=== PATIENT | male | born 1965 | race Caucasian/White ===

== ENCOUNTER 2016-12-02 08:26 | Emergency (ER) | payer OTHER ==
--- NOTE | 2016-12-02 09:24 | XR ---
EXAMINATION TYPE: XR ribs LT w pa chest xray DATE OF EXAM: 12/02/2016 9:13 AM COMPARISON: NONE HISTORY: Pain TECHNIQUE: PA view of the chest and 4 views of the left ribs submitted FINDINGS: Postsurgical change involving the left shoulder with findings compatible with remote healed left clav icular fracture. The lungs are clear. No pneumothorax, pleural effusion or focal infiltrate. IMPRESSION: 1. No acute fracture. 2. Remote traumatic change
--- NOTE | 2016-12-02 09:34 | ED ---
Back Pain HPI - General Chief Complaint: Back Pain/Injury Stated Complaint: Rib injury, [facility]HS Time Seen by Provider: 12/02/16 08:50 Source: patient, RN notes reviewed Mode of arrival: ambulatory Limitations: no limitations - History of Present Illness Initial Comments: 51-year-old male presents emergency Department chief complaint left rib pain. Patient states that he was at work in which she fell back because he was standing in the bowl tried to remove a log and semi-pulled a rope on him. Patient states the boat shifted causing the fall back onto the seat. Patient states he had some pain then but states that he was working on some machinery last couple days states that he's had increasing pain because of the seat bouncing and hitting region. Patient states the pain seems worse. Patient denies any hematuria. Patient denies abdominal pain, low back pain. Patient states she does have some pain with takes a deep inspiration. - Related Data Previous Rx's Medication Instructions Recorded Hydrocodone/Acetaminophen [[place] 1 tab PO Q6HR PRN #20 tab 12/02/16 5-325] Allergies Allergy/AdvReac Type Severity Reaction Status Date / Time codeine AdvReac Itching Verified 12/02/16 09:00 Review of Systems ROS Statement: Those systems with pertinent positive or pertinent negative responses have been documented in the HPI. ROS Other: All systems not noted in ROS Statement are negative. Past Medical History Past Medical History: No Reported History History of Any Multi-Drug Resistant Organisms: None Reported Past Surgical History: Joint Replacement Additional Past Surgical History / Comment(s): abdominal surg knee Past Psychological History: No Psychological Hx Reported Smoking Status: Never smoker Past Alcohol Use History: Rare Past Drug Use History: None Reported General Exam Limitations: no limitations General appearance: alert, in no apparent distress Head exam: Present: atraumatic, normocephalic, normal inspection Neck exam: Present: normal inspection, full ROM. Absent: tenderness, meningismus, lymphadenopathy Respiratory exam: Present: normal lung sounds bilaterally, chest wall tenderness (Left rib tenderness posterior to lateral). Absent: respiratory distress, wheezes, rales, rhonchi, stridor Cardiovascular Exam: Present: regular rate, normal rhythm, normal heart sounds. Absent: systolic murmur, diastolic murmur, rubs, gallop, clicks GI/Abdominal exam: Present: soft, normal bowel sounds. Absent: distended, tenderness, guarding, rebound, rigid Back exam: Present: full ROM, tenderness. Absent: paraspinal tenderness, vertebral tenderness Course Vital Signs 12/02/16 08:30 Temperature 97.2 F L Pulse Rate 59 L Respiratory 18 Rate Blood Pressure 107/69 O2 Sat by Pulse 100 Oximetry Medical Decision Making - Medical Decision Making 31-year-old male presented for rib injury. Patient has no obvious fracture on x -ray he may have a small fractures are identified. Patient will be discharged with pain medication return parameters were discussed. Disposition Clinical Impression: Rib contusion Disposition: HOME SELF-CARE Condition: Stable Instructions: Rib Contusion (ED) Additional Instructions: Please return to the Emergency Department if symptoms worsen or any other concerns. Prescriptions: Hydrocodone/Acetaminophen [[place] 5-325] 1 tab PO Q6HR PRN #20 tab PRN Reason: Pain Time of Disposition: 09:34
[2016-12-02 09:54] VITALS: BP 115/66; PULSE 60; RESP 16; TEMP 97.7
== END 2016-12-02 10:00 | disposition home or self-care (01) ==
LOC: EC 08:26
DX: S20.212A Contusion of left front wall of thorax, initial encounter (principal); Z88.5 Allergy status to narcotic agent; W18.30XA Fall on same level, unspecified, initial encounter; Y93.89 Activity, other specified; Y92.69 Other specified industrial and construction area as the place of occurrence of the external cause; Y99.0 Civilian activity done for income or pay
CPT/HCPCS: 99283

== ENCOUNTER 2017-06-23 09:25 | Emergency (ER) | payer OTHER ==
[2017-06-23 09:38] VITALS: BP 112/80; PULSE 61; RESP 18; TEMP 97.5
[2017-06-23] MEDS ORDERED: PROPARACAINE 0.5% OPHTH DROPS 15 ML BTL LEFT EYE STA (10:00)
[2017-06-23] MEDS ORDERED: TOBRAMYCIN 0.3% OPHTH DROPS 5 ML BTL LEFT EYE STA (10:00)
--- NOTE | 2017-06-23 10:02 | ED ---
Eye Problem HPI - General Chief complaint: Eye Problems Stated complaint: [facility]HS-Left Eye Injury Time Seen by Provider: 06/23/17 09:50 Source: patient, RN notes reviewed Mode of arrival: ambulatory Limitations: no limitations - History of Present Illness Initial comments: 51-year-old male presents emergency Department with chief complaint of left eye irritation. Patient's he was power washing yesterday states that it sprayed back with soap and water into his left eye states it's braid the safety glasses off. Patient states he immediately rinsed it out felt fine states he woke up tonight felt that his eye was irritated. Patient states that she's had no change in vision. Patient states that he feels that there is something in his eye at this time as notices eyes are red. - Related Data Home Medications Medication Instructions Recorded Confirmed Ibuprofen/Pseudoephedrine HCl 2 cap PO Q12H PRN 06/23/17 06/23/17 [Advil Cold & Sinus Caplet] Previous Rx's Medication Instructions Recorded Tobramycin [Tobrex 0.3% Ophth Soln] 1 drop LEFT EYE Q4HR #5 ml 06/23/17 Allergies Allergy/AdvReac Type Severity Reaction Status Date / Time codeine AdvReac Itching Verified 06/23/17 09:58 Review of Systems ROS Statement: Those systems with pertinent positive or pertinent negative responses have been documented in the HPI. ROS Other: All systems not noted in ROS Statement are negative. Past Medical History Past Medical History: No Reported History History of Any Multi-Drug Resistant Organisms: None Reported Past Surgical History: Joint Replacement Additional Past Surgical History / Comment(s): abdominal surg knee Past Psychological History: No Psychological Hx Reported Smoking Status: Never smoker Past Alcohol Use History: Rare Past Drug Use History: None Reported General Exam Limitations: no limitations General appearance: alert, in no apparent distress Head exam: Present: atraumatic, normocephalic, normal inspection Eye exam: Present: PERRL, EOMI, conjunctival injection (Moderate left,), other ( Corneal abrasion noted in the 12 o'clock position). Absent: normal appearance, scleral icterus, periorbital swelling Pupils: Present: other (Was lamp was used to evaluate dye there is uptake on 12 o'clock position all along with an the lateral aspect of the sclera there is a circular uptake noted) ENT exam: Present: normal exam, normal oropharynx, mucous membranes moist Neck exam: Present: normal inspection. Absent: tenderness, meningismus, lymphadenopathy Respiratory exam: Present: normal lung sounds bilaterally. Absent: respiratory distress, wheezes, rales, rhonchi, stridor Cardiovascular Exam: Present: regular rate, normal rhythm, normal heart sounds. Absent: systolic murmur, diastolic murmur, rubs, gallop, clicks Course Vital Signs 06/23/17 09:35 Temperature 97.5 F L Pulse Rate 61 Respiratory 18 Rate Blood Pressure 112/80 O2 Sat by Pulse 98 Oximetry Medical Decision Making - Medical Decision Making 51-year-old male presented for left eye irritation. Patient has corneal and scleral abrasion. Patient is given Tobrex eyedrops tetanus is up-to-date. Patient will follow-up with on-call ophthalmology return parameters were discussed. Disposition Clinical Impression: Corneal abrasion, Abrasion of sclera Disposition: HOME SELF-CARE Condition: Stable Instructions: Corneal Abrasion (ED) Additional Instructions: Please return to the Emergency Department if symptoms worsen or any other concerns. Prescriptions: Tobramycin [Tobrex 0.3% Ophth Soln] 1 drop LEFT EYE Q4HR #5 ml Referrals: None,Stated [Primary Care Provider] - 1-2 days Junior Ruiz MD [STAFF PHYSICIAN] - 1-2 days Time of Disposition: 10:15
== END 2017-06-23 10:26 | disposition home or self-care (01) ==
LOC: EC 09:25
DX: S05.02XA Injury of conjunctiva and corneal abrasion without foreign body, left eye, initial encounter (principal); Z88.5 Allergy status to narcotic agent; Y92.69 Other specified industrial and construction area as the place of occurrence of the external cause
CPT/HCPCS: 99283

== ENCOUNTER 2018-02-03 14:30 | Emergency (ER) | payer OTHER ==
[2018-02-03] MEDS ORDERED: KETOROLAC 60 MG/2 ML VIAL IM STA (15:01)
--- NOTE | 2018-02-03 15:06 | ED ---
General Adult HPI - General Chief complaint: Extremity Injury, Upper Stated complaint: Shoulder Injury-IHS Time Seen by Provider: 02/03/18 14:45 Source: patient, RN notes reviewed Mode of arrival: ambulatory Limitations: no limitations - History of Present Illness Initial comments: This a 52-year-old male presents emergency department complaining of left shoulder pain. Patient states he had lifted casket at work and it was extremely heavy and he felt shoulder pain he thought his shoulder was noted be dislocated. Patient states after that he had severe pain and was unable to have full range of motion of the shoulder at that time. Patient states he has a very difficult time with external rotation and he states the anterior aspect of the shoulder is extremely tender. Patient denies any other injury. Patient denies any wrist hand or elbow pain. Patient states he had a broken clavicle on the left before. Patient had previous shoulder surgery in the 90s. - Related Data Previous Rx's Medication Instructions Recorded Ibuprofen [Motrin] 600 mg PO Q6HR PRN #20 tab 02/03/18 Allergies Allergy/AdvReac Type Severity Reaction Status Date / Time codeine AdvReac Itching Verified 02/03/18 15:11 Review of Systems ROS Statement: Those systems with pertinent positive or pertinent negative responses have been documented in the HPI. ROS Other: All systems not noted in ROS Statement are negative. Past Medical History Past Medical History: No Reported History History of Any Multi-Drug Resistant Organisms: None Reported Past Surgical History: Joint Replacement Additional Past Surgical History / Comment(s): abdominal surg knee Past Psychological History: No Psychological Hx Reported Smoking Status: Never smoker Past Alcohol Use History: Rare Past Drug Use History: None Reported General Exam - General Exam Comments Initial Comments: GENERAL Patient is well-developed and well-nourished. Patient is in mild distress. EYES Patient's pupils are equal and round. Extraocular motion is intact SKIN Unremarkable NEURO The patient is alert and oriented 3 PYSCH Patient has normal interpersonal interactions. MUSCULOSKELETAL Left shoulder is tender in the anterior aspect of the shoulder. Left shoulder is very weak with external rotation when compared to the right. Patient has decreased abduction. He shouldn't has normal neurovascular check on the left Limitations: no limitations Course Vital Signs 02/03/18 14:47 Temperature 98.3 F Pulse Rate 78 Respiratory 18 Rate Blood Pressure 126/83 O2 Sat by Pulse 97 Oximetry Disposition Clinical Impression: Rotator cuff dysfunction Disposition: HOME SELF-CARE Condition: Good Instructions: Rotator Cuff Injury (ED) Prescriptions: Ibuprofen [Motrin] 600 mg PO Q6HR PRN #20 tab PRN Reason: For pain Is patient prescribed a controlled substance at d/c from ED?: No Time of Disposition: 15:30
--- NOTE | 2018-02-03 15:28 | XR ---
Left shoulder HISTORY: Lifting injury, left shoulder pain 3 views of the left shoulder An old left clavicular fracture shows healed appearance. Arthropathy present at the acromion clavicul ar joint. Postop change noted to the bony glenoid. Mild marginal spurring at the humeral head. Bone m ineralization, alignment are maintained. No acute fracture or dislocation. IMPRESSION: No acute abnormality, shoulder MRI may be of benefit.
[2018-02-03 15:51] VITALS: BP 111/71; PULSE 72; RESP 16; TEMP 98
== END 2018-02-03 15:50 | disposition home or self-care (01) ==
LOC: EC 14:30
DX: M75.82 Other shoulder lesions, left shoulder (principal); Z88.5 Allergy status to narcotic agent; X50.0XXA Overexertion from strenuous movement or load, initial encounter; Y92.69 Other specified industrial and construction area as the place of occurrence of the external cause; Y99.0 Civilian activity done for income or pay
CPT/HCPCS: 73030; 99283; 96372; J1885

== ENCOUNTER → 2018-03-02 | Outpatient (CLI) | payer OTHER | END | disposition home or self-care (01) | LOC: RADMRIMAIN 08:30 | PROVIDERS: ATTEND Orthopaedic Surgery | DX: Z53.9 Procedure and treatment not carried out, unspecified reason (principal) ==

== ENCOUNTER → 2018-05-10 | Outpatient (CLI) | payer OTHER ==
[2018-05-10 09:41] LABS: Basophils % (A) 1 %; Eosinophils # (A) 0.5 k/uL (0-0.7); Eosinophils % (A) 8 %; HCT 50.3 % (39.0-53.0); HGB 16.3 gm/dL (13.0-17.5); Lymphocytes % (A) 31 %; MCH 30.4 pg (25.0-35.0); MCHC 32.4 g/dL (31.0-37.0); Mean Platelet Volume 7.4; Monocytes # (A) 0.5 k/uL (0-1.0); Monocytes % (A) 8 %; Neutrophils # (A) 3.1 k/uL (1.3-7.7); Neutrophils % (A) 50 %; Platelet Count 177 k/uL (150-450); RBC 5.35 m/uL (4.30-5.90); RDW 12.8 % (11.5-15.5); WBC 6.3 k/uL (3.8-10.6)
[2018-05-10 09:59] LABS: Potassium 4.4 mmol/L (3.5-5.1)
== END | disposition home or self-care (01) ==
LOC: LABPAT 08:34
PROVIDERS: ATTEND Orthopaedic Surgery
DX: Z01.818 Encounter for other preprocedural examination (principal); M75.42 Impingement syndrome of left shoulder; Z01.812 Encounter for preprocedural laboratory examination
CPT/HCPCS: 36415; 80051; 85025; 93005

== ENCOUNTER → 2018-05-13 | Day surgery (SDC) | payer OTHER ==
[2018-05-09 15:04] VITALS: BMI 22.1
--- NOTE | 2018-05-12 09:53 | HP ---
HISTORY AND PHYSICAL CHIEF COMPLAINT: Left shoulder pain. 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 He is having pain with overhead use and at night. He has tried medications, an injection, and therapy. He continues to have pain that limits his normal function and activities. He did have an open [employer] repair in the 90s. PAST MEDICAL HISTORY: Negative. PAST SURGICAL HISTORY: Significant for previous left open shoulder surgery. CURRENT MEDICATIONS: None. He notes allergies to CODEINE. FAMILY HISTORY: Significant for cancer. SOCIAL HISTORY: Negative for current tobacco or alcohol use. REVIEW OF SYSTEMS: A 16-point review of systems otherwise reviewed and is noncontributory. PHYSICAL EXAMINATION: On examination, the patient is approximately 5 foot 9, 152 pounds of mesomorphic habitus. HEENT exam is nonfocal. Neck is supple. On examination of his left shoulder, he is tender about the anterior subacromial space and bicipital groove. He has moderate subacromial crepitus. Active range of motion, forward elevation 130 degrees, external rotation with arm side 55 degrees, internal rotation to L3. Motor strength is 4+/5 for abduction and external rotation. Impingement test, Neer test, and Speed tests are positive. His distal neurovascular appears otherwise intact in the left upper extremity. MRI report for the left shoulder shows increased signal involving the supraspinatus insertion. There is evidence of increased signal involving the intra-articular portion of the long head of biceps as well. IMPRESSION: 1. Left shoulder and rotator cuff strain versus partial-thickness tear. 2. Left shoulder impingement. 3. Left shoulder partial tear of the long head of biceps/tendinosis. 4. History of open [employer] repair, left shoulder. RECOMMENDATIONS: I talked to the patient at length regarding his condition and treatment options. At this point, he remains quite symptomatic despite adequate conservative measures. After thorough discussion, he opts to proceed with surgery. We will plan to proceed with arthroscopic evaluation with probable subacromial decompression, possible rotator cuff debridement versus repair and possible biceps tenotomy. Risks and benefits were discussed at length in layman's terms. We will likely perform that as an outpatient procedure. MMODL / IJN: [id number] /
[~2018-05-13] MED LIST: DEXAMETHASONE SOD PHOSPHATE 10 MG/ML 1 ML VIAL IV ONE; EPINEPHrine (PF) 1 ML in SODIUM CHLORIDE 0.9% IRRIGATIO 3,000 ML IRRIGATION ONE; LACTATED RINGERS 1,000 ML IV SCH; LIDOCAINE 1% 20 ML VIAL (10MG/ML) FOR IV START SQ ONE; LIDOCAINE 1% INJ 10MG/ML (20 ML MDV) ONE; MIDAZOLAM 2 MG/2 ML VIAL ONE; ONDANSETRON 4 MG/2 ML VIAL IVP ONE; PHENYLEPHRINE-0.9% NACL SYG 1 MG/10 ML SYRINGE ONE; PROPOFOL 10 MG/ML 20 ML VIAL IV ONE; ROPIVACAINE 5 MG/ML 30 ML VIAL ONE; SCOPOLAMINE 1.5MG/72HR PATCH TRANSDERM ONE; SUCCINYLCHOLINE CHLORIDE 100 MG/5 ML SYR IV ONE; ceFAZolin 1,000 MG in DEXTROSE/WATER 1 50ML.BAG IVPB ONE; fentaNYL (PF) 50 MCG/ML 2 ML AMP IV PRN
[2018-05-13] MEDS: MIDAZOLAM 2 MG/2 ML VIAL IV PRN ×2 (07:51→08:51)
--- NOTE | 2018-05-13 09:13 | P.ONQ ---
Anesthesiology Proc Note - PNB - Peripheral Nerve Block Performed Left Interscalene Single Time Out Performed: Yes ([id number]) Procedure Start Time: 08:52 Procedure Stop Time: 09:00 Indication: Acute Post-Operative Pain, Dx/Pain Location (Left Shoulder Pain), Requested by physician Sedation Type: Sedate with meaningful contact maintained Preparation: Sterile Prep Position: Supine Catheter: Indwelling Needle Types: On-Q Needle Size: 50mm (2") Needle Gauge: 21 Technique: Ultrasound Injectate: 0.5% Ropivacaine (see comment for volume) (25ml) Blood Aspirated: No Pain Paresthesia on Injection Noted: No Resistance on Injection: Normal Events: Uneventful and Well Tolerated
--- NOTE | 2018-05-13 10:39 | P.OP ---
Date of Procedure: 05/13/18 Preoperative Diagnosis: Left rotator cuff tearbicipital tendinosis Postoperative Diagnosis: High-grade partial-thickness tear rotator cuff/supraspinatus, high-grade partial -thickness tear intra-articular portion of the long head of the biceps Procedure(s) Performed: Left shoulder arthroscopic subacromial decompression/rotator cuff repair/biceps tenotomy Implants: Arthrex 4.75 mm swivel lock anchor 1 Anesthesia: SHILOH regional Surgeon: William Melgar Formulation Technician #1: Kishor Penaloza Estimated Blood Loss (ml): 10 Pathology: none sent Condition: stable Disposition: PACU Indications for Procedure: The patient is a 52-year-old male who presents with progressive left shoulder pain after recent injury despite conservative measures. A discussion of the risks and benefits of operative intervention versus continued conservative measures was made with the patient. He opted to proceed with surgery. Operative risks to include infection, neurovascular injury, development of blood clots, possible incomplete resolution of symptoms, possible worsening symptoms and need for subsequent procedures was discussed. Informed consent was obtained. Operative Findings: As below Description of Procedure: The patient was brought to the operating room, and after induction of general anesthesia, was placed in a beachchair position. The bony prominences were appropriately padded. A preoperative interscalene block was placed anesthesia for postoperative analgesia. The left upper extremity was prepped and draped in normal fashion. I examined the left shoulder. There was no gross block to passive motion or instability. The bony outlines the acromion, distal clavicle , and coracoid process were outlined with a skin marker. The glenohumeral joint was inflated with 50 mL of saline utilizing a spinal needle from posterior approach. A posterior portal was made through a 5 mm skin incision 1 cm medial and inferior to the posterior lateral border the acromion. A blunt trocar was used to easily into the joint. Diagnostic arthroscopy was performed. An anterior portals made just lateral to the coracoid process entering the joint above the subscapularis tendon. The anterior labrum showed some fraying however appeared intact. On inspection of the biceps, high-grade partial thickness tear involving the interarticular portion was noted. It was elected to proceed with tenotomy at this point. This was released from the superior labrum with electrocautery and allowed to retract the bicipital groove. The subscapularis appeared intact. On inspection the anterior aspect the rotator cuff, a high-grade partial-thickness tear involving the anterior aspect the supraspinatus was noted. This involved approximately 80% of the tendon thickness. The posterior portion the cuff appeared intact. The posterior labrum was intact. Minimal degenerative changes involving the glenoid and humeral head were noted. The inferior recess was inspected. The arthroscope was placed into the subacromial space. A lateral portal was made through a 5 mm skin incision 2 cm inferior to the anterolateral border of the acromion. The soft tissue on the undersurface the acromion was debrided with a motorized shaver and electrocautery clearly defining the anterior medial and lateral borders as well as the distal clavicle. An anterior inferior acromioplasty was performed with a motorized stacey starting anterolateral, then extending this posteriorly, then extending this medially. I was able to convert to a flat acromion. This is verified from the posterior and lateral viewing portals. The coracoacromial ligament was detached from the anterior acromion with electrocautery. On inspection the rotator cuff, the anterior supraspinatus partial-thickness tear was completed and measured approximately 1 cm. This is easily mobilized back to the greater tuberosity. A #2 fiber tape was passed with a scorpion suture passer. A lateral anchor was then placed with the appropriate starting awl. Good purchase obtained. Final arthroscopic view showed adequate compression of the rotator cuff on the footprint. The arthroscope was then removed. The portals were closed with simple 3-0 nylon suture. A sterile dressing was applied in addition to a sling. Patient was awoken from general anesthesia and transferred to recovery room in good condition. Blood loss was estimated at 10 mL. No complications were incurred. Sponge and needle counts were correct in the case.
[2018-05-13 10:46] VITALS: TEMP 97
[2018-05-13 11:22] VITALS: RESP 16
[2018-05-13 11:40] VITALS: BP 122/72; PULSE 72
== END | disposition home or self-care (01) ==
LOC: OR 07:24
PROVIDERS: ATTEND Orthopaedic Surgery
DX: M75.112 Incomplete rotator cuff tear or rupture of left shoulder, not specified as traumatic (principal); Z88.5 Allergy status to narcotic agent; S46.112A Strain of muscle, fascia and tendon of long head of biceps, left arm, initial encounter; X58.XXXA Exposure to other specified factors, initial encounter
CPT/HCPCS: 64415; 29826; 29827; C1713 ×2; J2250; J1100; J2405; J0171; J2001; J0690; J2795; J2370; J0330; J2704